=== PATIENT | male | born 1980 | race African-American/Black ===

== ENCOUNTER 2016-10-20 10:14 | Emergency (ER) | payer MEDICAID ==
[~2016-10-20] VITALS: Ht 177.8 cm; Wt 96.0 kg
[2016-10-20] MEDS ORDERED: ONDANSETRON 4MG ODT PO ONE (11:30)
[2016-10-20] MEDS ORDERED: MORPHINE SULFATE 10 MG/ML CPJ IM ONE (11:30)
[2016-10-20] MEDS ORDERED: MORPHINE SULFATE 4 MG/ML CPJ (NOT FOR IM USE) IV ONE (12:30)
[2016-10-20] MEDS ORDERED: TETANUS, DIPHTHERIA, PERTUSSIS VAC/PF 0.5ML (>7YR OLD) IM ONE (13:15)
[2016-10-20] MEDS ORDERED: KETOROLAC 30MG/ML VIAL IV ONE (14:00)
[2016-10-20 14:17] VITALS: BP 144/78
[2016-11-08] MEDS ORDERED: CEPH250C2 PO (17:18)
[2016-11-08] MEDS ORDERED: NAPR375T5 PO (17:18)
[2016-11-08] MEDS ORDERED: HYDR-4009 PO (17:18)
[2016-11-08] MEDS ORDERED: IBUP-2028 PO (17:18)
== END 2016-10-20 15:09 | disposition home or self-care (01) ==
LOC: ER 10:14
DX: S82.832A Other fracture of upper and lower end of left fibula, initial encounter for closed fracture (principal); S82.202A Unspecified fracture of shaft of left tibia, initial encounter for closed fracture; F17.200 Nicotine dependence, unspecified, uncomplicated; Y93.39 Activity, other involving climbing, rappelling and jumping off; Y93.89 Activity, other specified; Y92.89 Other specified places as the place of occurrence of the external cause; Y99.8 Other external cause status
CPT/HCPCS: 29515; 73590; 73610; 90471; 90715; 96374; 96375; 99284; 99406; J1885; J2270; Q0162

== ENCOUNTER 2016-11-09 07:18 | Inpatient (IN) | payer MEDICAID ==
[~2016-11-09] VITALS: Ht 177.8 cm; Wt 95.3 kg
[~2016-11-09 07:18] MED LIST: CEPH250C2 PO; HYDR-4009 PO; IBUP-2028 PO; NAPR375T5 PO
[2016-11-09] MEDS ORDERED: SODIUM CHLORIDE 0.9% 1,000 ML IV SCH (08:30)
[2016-11-09] MEDS ORDERED: BUPIVACAINE HCL 0.5% (5MG/ML) 50ML ONE (08:54)
[2016-11-09] MEDS ORDERED: BACITRACIN 50,000 UNITS/VIAL ONE (08:55)
[2016-11-09] MEDS ORDERED: MIDAZOLAM HCL 2 MG/2 ML VIAL ONE (09:37)
[2016-11-09] MEDS ORDERED: FENTANYL CITRATE/PF 50MCG/ML 2ML VIAL ONE (09:37)
[2016-11-09] MEDS ORDERED: PROPOFOL 200MG/20ML VIAL IV ONE (09:37)
[2016-11-09] MEDS ORDERED: MORPHINE SULFATE 10 MG/ML CPJ ONE (09:56)
[2016-11-09] MEDS ORDERED: CEFAZOLIN SODIUM 1000MG/VIAL ONE (10:36)
[2016-11-09] MEDS ORDERED: MORPHINE SULFATE 2 MG/ML CPJ (NOT FOR IM USE) IV PRN (10:45)
[2016-11-09] MEDS ORDERED: LABETALOL HCL 20MG/4ML CARPUJECT IV PRN (10:45)
[2016-11-09] MEDS ORDERED: ONDANSETRON HCL 4MG/2ML VIAL ONE (11:58)
[2016-11-09] MEDS: MEPERIDINE HCL/PF 25MG/ML CPJ IV PRN ×2 (13:00→13:32)
[2016-11-09] MEDS ORDERED: HYDROMORPHONE HCL/PF 2MG/ML CPJ IV PRN (13:30)
[2016-11-09] MEDS: HYDROMORPHONE HCL/PF 2MG/ML CPJ IV PRN ×2 (14:05→14:42)
[2016-11-09] MEDS ORDERED: NALOXONE INJ IV PRN (15:00)
[2016-11-09] MEDS ORDERED: DIPHENHYDRAMINE INJ IV PRN (15:00)
[2016-11-09] MEDS ORDERED: HYDROMORPHONE PCA 10MG/50ML IV PRN (15:00)
[2016-11-09] MEDS ORDERED: ONDANSETRON INJ IV PRN (15:00)
[2016-11-09 16:10] VITALS: BP 134/84
[2016-11-09] MEDS: CELECOXIB 200MG CAPSULE PO SCH (17:00)
[2016-11-09 17:10] VITALS: BP 134/89
[2016-11-09 20:00] VITALS: BP 147/90
[2016-11-09] MEDS ORDERED: ONDANSETRON HCL 4MG/2ML VIAL IV PRN (20:00)
[2016-11-09] MEDS ORDERED: HYDROCODONE/ACETAMINOPHEN 10/325MG TABLET PO PRN ×2 (20:00)
[2016-11-09] MEDS ORDERED: MAGNESIUM HYDROXIDE 400MG/5ML 30ML UDC PO PRN (20:00)
[2016-11-09] MEDS ORDERED: ACETAMINOPHEN 325MG TABLET PO PRN (20:00)
[2016-11-09] MEDS ORDERED: ZOLPIDEM TARTRATE 5MG TABLET PO PRN (21:00)
[2016-11-10 00:02] VITALS: BP 141/77
[2016-11-10] MEDS: CEFAZOLIN 2,000 MG in DEXT 5% WATER 100 ML IV SCH ×2 (01:18→04:00)
[2016-11-10 04:00] VITALS: BP 131/85
[2016-11-10 08:00] VITALS: BP 135/96
[2016-11-10] MEDS: CELECOXIB 200MG CAPSULE PO SCH (08:32)
[2016-11-10] MEDS ORDERED: DOCUSATE SODIUM 100MG CAPSULE PO SCH (09:00)
[2016-11-10 12:00] VITALS: BP 140/71
[2016-11-10 15:20] VITALS: BP 140/71
== END 2016-11-10 16:05 | disposition home or self-care (01) | DRG 313 ==
LOC: OR 07:18 → 6EST 07:19
PROVIDERS: ADMIT Orthopaedic Surgery; ATTEND Orthopaedic Surgery
PROC: 0QSK04Z Reposition Left Fibula with Internal Fixation Device, Open Approach (ICD-10-PCS; 2016-11-09)
PROC: 0QSH04Z Reposition Left Tibia with Internal Fixation Device, Open Approach (ICD-10-PCS; principal; 2016-11-09 11:30)
DX: S82.842A Displaced bimalleolar fracture of left lower leg, initial encounter for closed fracture (principal); F17.210 Nicotine dependence, cigarettes, uncomplicated; W01.0XXA Fall on same level from slipping, tripping and stumbling without subsequent striking against object, initial encounter; Y93.89 Activity, other specified; Y92.89 Other specified places as the place of occurrence of the external cause; Y99.8 Other external cause status
CPT/HCPCS: 73610; 97116; 97162; 97530; C1713; J0690; J1170; J2175; J2250; J2270; J2405; J2704; J3010; J3490; J7030; J7060; Q4051

== ENCOUNTER 2017-08-28 09:01 | Emergency (ER) | payer MEDICAID ==
[~2017-08-28] VITALS: Ht 177.8 cm; Wt 85.0 kg
[2017-08-28 11:39] LABS: KETONES URINE NEGATIVE (NEGATIVE); LEUKOCYTE ESTERASE URINE TRACE (NEGATIVE); NITRITE URINE NEGATIVE (NEGATIVE); OCCULT BLOOD URINE 3+ (NEGATIVE); PROTEIN URINE 3+ (NEGATIVE); SPECIFIC GRAVITY URINE 1.022 (1.005-1.030)
[2017-08-28 11:43] LABS: CLARITY URINE TURBID (CLEAR); COLOR URINE BLOODY (YELLOW)
[2017-08-28 11:44] LABS: BASOPHILS % 0.5 % (0.0-2.0); EOSINOPHILS % 2.2 % (0.0-5.0); HEMATOCRIT. 42.9 % (42.0-52.0); HEMOGLOBIN. 14.4 g/dL (14.0-18.0); LYMPHOCYTES % 25.2 % (20.0-50.0); MEAN CORPUSCULAR HEMOGLOBIN 32.1 pg (28.0-32.0); MEAN CORPUSCULAR VOLUME 95.4 fL (80.0-94.0); MEAN PLATELET VOLUME 7.4 fl (7.4-10.4); MONOCYTES % 9.5 % (2.0-8.0); NEUTROPHILS % 62.6 % (40.0-76.0); PLATELET 264 x1000/uL (130-400); RED BLOOD CELL COUNT 4.49 mill/uL (4.7-6.1); RED CELL DISTRIBUTION WIDTH 13.3 % (11.6-14.6)
[2017-08-28] MEDS ORDERED: SODIUM CHLORIDE 0.9% 1,000 ML IV ONE (11:45)
[2017-08-28 11:49] LABS: CHLORIDE 104 mEq/L (98-107)
[2017-08-28] MEDS ORDERED: CEFTRIAXONE SODIUM 250 MG/VIAL IM ONE (13:15)
[2017-08-28] MEDS ORDERED: LEVOFLOXACIN 500MG TABLET PO ONE (13:15)
[2017-08-28 13:44] VITALS: BP 128/72
== END 2017-08-28 13:47 | disposition home or self-care (01) ==
LOC: ER 09:33
DX: N39.0 Urinary tract infection, site not specified (principal); R31.9 Hematuria, unspecified; F12.10 Cannabis abuse, uncomplicated; Z87.891 Personal history of nicotine dependence
CPT/HCPCS: 36415; 74176; 80048; 81003; 83690; 85025; 87086; 96372; 99285; J0696; J7030